=== PATIENT | female | born 1990 | race Caucasian/White ===

== ENCOUNTER 2017-04-24 04:04 | Inpatient (IN) | payer BC ==
[2017-04-24] MEDS ORDERED: Sodium Chloride 0.9% 10 ML ONE ×2 (04:56→23:05)
[2017-04-24] MEDS ORDERED: Ondansetron HCl/PF 4 MG/2 ML Vial IVP PRN ×2 (07:38→18:02)
[2017-04-24] MEDS ORDERED: Carboprost 250 MCG/ML AMP IM PRN (07:38)
[2017-04-24] MEDS ORDERED: Lidocaine 1% (PF) 30 ML VIAL SC PRN (07:38)
[2017-04-24] MEDS ORDERED: LR / Pitocin 40 units/1000 ml 1,000 ML IV PRN (07:38)
[2017-04-24] MEDS ORDERED: Ibuprofen 800 MG TAB PO PRN (07:38)
[2017-04-24] MEDS ORDERED: Acetaminophen/Codeine 30-300mg Tablet PO PRN ×2 (07:38)
[2017-04-24] MEDS ORDERED: Promethazine HCl 25 MG/ML VIAL IM PRN (07:38)
[2017-04-24] MEDS ORDERED: Diphenoxylate HCl/Atropine Tablet PO PRN (07:38)
[2017-04-24 07:45] LABS: Hemoglobin 12.1 g/dL (12.0-16.0); Mean Corpuscular HGB CONC 33.6 g/dL (32.0-36.0); Mean Corpuscular Hemoglobin 29.8 pg (27.0-31.0); Mean Corpuscular Volume 88.7 fl (81.0-99.0); Mean Platelet Volume 8.9 fL (7.4-10.4); Platelet Count 186 thou/uL (130-400); RBC Distribution Width 12.1 % (11.5-14.5); Red Blood Cell (RBC) Count 4.07 mill/uL (4.20-5.40); White Blood Cell (WBC) Count 11.6 thou/uL (4.8-10.8)
--- NOTE | 2017-04-24 07:47 | PDOC.LDHP ---
Labor and Delivery H&P Chief complaint: contractions HPI: CTX starting at 11pm on 04/23/17 and progressed until unbearable. Current gestational age (weeks): 41 Due date: 04/15/17 Dating criteria: last menstrual period (verified by first trimester US) Grav: 1 Para: 0 Current complications: none Abnormal US findings: No Past Medical History: abnml pap in 2016, with no colpo done Current medications: pre-deisy vitamins Previous surgical history: other (R. ankle sugery breast augmentation left benionectomy) Allergies/Adverse Reactions: Allergies Allergy/AdvReac Type Severity Reaction Status Date / Time Sulfa (Sulfonamide Allergy Verified 04/24/17 04:37 Antibiotics) Social history: none - Physical Exam Vital signs reviewed and normal: yes General: breathing through contractions Heart: RRR Lungs: nonlabored breathing Abdomen: gravid Extremeties: no edema FHT: category 1 [place] contractions every: q3 - Vaginal Exam cm dilated: 6 (on admission, exam byRN) Effacement: 90% Station: 0 - OB Labs Blood type: O RH: positive Antibody Screen: negative HIV: negative RPR: negative HEPSAg: negative 1 hour GCT: negative GBS: negative Urine drug screen: not done Rubella: immune Additional Labs: Sequentila screen negative - Assessment L&D Assessment: term patient in labor - Plan Plan: admit to L&D -: low intervention protocol
[2017-04-24] MEDS ORDERED: Lidocaine 1% (PF) 30 ML VIAL ONE ×2 (08:07→08:18)
[2017-04-24 08:17] LABS: Syphilis Antibody Nonreactive (Nonreactive); Syphilis Antibody Index 0.04 S/CO (<1.00 Non-Reactive)
[2017-04-24 08:18] LABS: HBSAg Index 0.21 S/CO (0-0.99); Hep B Surf Ag Non-Reactive S/CO (NonReactive)
[2017-04-24] MEDS ORDERED: CEFAZOLIN/Water 2 GM/20 ML SYRINGE ONE (10:48)
--- NOTE | 2017-04-24 10:48 | PDOC.EVN ---
Event Note - Event Note Event Note: L&D OBGYN chapter relations administrator note: Called into [facility] on request of Ms Corina Neumann for retained placenta. Manual placental extraction occurred by Corina neumann and removal revealed it to be intact visually. No excessive VB noted with procedure. Total EBL per light approx 500ml. After placental extraction, I performed a transabdominal targeted sono to assess for any retained POC. Endometrial stripe seen and confirmed by Corina Neumann as well as patient. No complications noted. Sono completed at 1040.
--- NOTE | 2017-04-24 10:57 | PDOC.OPDEL ---
OB Operative/Delivery Note Delivery Dr/Surgeon: Mamie Neumann CNM Pre-Delivery Diagnosis: active labor Procedure/Post Delivery Dx: spontaneous vaginal delivery Weeks gestation: 41 Anesthesia: none - Findings A Sex: female Weight: 8 lb 6 oz - 1 min: 8 - 5 min: 9 - Additional Findings/Plan Placenta delivered: manual removal (After 20 mins without placental delivery Pitocin was started. 1030, aproximately 30 mins after delivery of the infant, 2mg of IV stadol was administered and the OB hospitalist was notifed that I was going to proceed with manual removal. The retained Placenta was removed manually intact. A bedside US performed by Dr. hernandez at approximatly 1040 was used to confirm the entire placenta was removed. Bleeding was well controlled. fundus firm below umbilicus) Repaired Obstetrical Laceration: none Estimated blood loss: 500mL Compilations/Other Findings: See above - retained placenta with live removal Post delivery plan: routine recovery (2 gm Ancef IV push X 1 dose for infection prophylaxsis)
[2017-04-24] MEDS ORDERED: CEFAZOLIN/Water 2 GM/20 ML SYRINGE SLOW IVP SCH (11:00)
[2017-04-24] MEDS ORDERED: Milk Of Magnesia 30 ML UDCUP PO PRN (18:02)
[2017-04-24] MEDS ORDERED: Bisacodyl 10 MG SUPP PR PRN (18:02)
[2017-04-24] MEDS ORDERED: Lanolin Ointment 7 GM TUBE TOP PRN (18:02)
[2017-04-24] MEDS ORDERED: HYDROcodone/Acetaminophen 5/325 mg Tablet PO PRN ×2 (18:02)
[2017-04-24] MEDS ORDERED: Misoprostol 200 MCG TAB VAG SCH (18:15)
[2017-04-24] MEDS ORDERED: Ferrous Sulfate 325 MG TAB PO SCH (18:15)
[2017-04-24] MEDS ORDERED: Ibuprofen 800 MG TAB PO SCH ×2 (18:15→23:00)
[2017-04-24] MEDS ORDERED: LR / Pitocin 40 units/1000 ml 1,000 ML IV SCH (18:15)
[2017-04-24] MEDS ORDERED: Adacel (T-DAP) 0.5 ML VIAL IM ONE (18:30)
[2017-04-24] MEDS ORDERED: Varicella virus, LIVE 0.5 ML VIAL SC ONE (18:30)
[2017-04-24] MEDS: Ibuprofen 800 MG TAB PO SCH (20:23)
[2017-04-24] MEDS: Docusate Calcium (SURFAK) 240 MG CAP PO SCH (20:23)
[2017-04-25] MEDS: Ibuprofen 800 MG TAB PO SCH ×3 (05:36→21:50)
[2017-04-25 05:47] LABS: Hemoglobin 10.4 g/dL (12.0-16.0); Mean Corpuscular HGB CONC 34.2 g/dL (32.0-36.0); Mean Corpuscular Hemoglobin 30.5 pg (27.0-31.0); Mean Corpuscular Volume 89.2 fl (81.0-99.0); Mean Platelet Volume 8.6 fL (7.4-10.4); Platelet Count 179 thou/uL (130-400); RBC Distribution Width 12.2 % (11.5-14.5); Red Blood Cell (RBC) Count 3.41 mill/uL (4.20-5.40); White Blood Cell (WBC) Count 11.3 thou/uL (4.8-10.8)
[2017-04-25] MEDS: Ferrous Sulfate 325 MG TAB PO SCH ×2 (08:19→16:10)
[2017-04-25] MEDS: Docusate Calcium (SURFAK) 240 MG CAP PO SCH ×2 (08:22→21:51)
[2017-04-25] MEDS ORDERED: Prenatal Vitamin 1 TAB PO SCH (09:00)
--- NOTE | 2017-04-25 18:51 | PDOC.PP ---
Post Progress Note Post Day #: 1 PO intake tolerated: yes Flatus: yes Ambulation: yes Vital Signs (12 hours) Temp Pulse Resp BP 04/25/17 17:28 98.0 F 04/25/17 12:00 97.8 F 59 L 20 04/25/17 10:02 97.8 F 59 L 20 04/25/17 07:41 97.8 F 59 L 20 109/55 L - Physical Examination General: NAD Cardiovascular: RRR Respiratory: clear to auscultation bilaterally Abdominal: + bowel sounds, lochia (minimal) Fundus firm & at: u-1 Extremities: negative homans (B) Skin: no rash Perineum: edema. Psychiatric: A&Ox3 Result Diagrams: 04/25/17 05:21 Additional Labs: Post Labs Blood Type O POSITIVE 04/24/17 05:25 Hep Bs Antigen Non-Reactive S/CO (NonReactive) 04/24/17 05:25 - Assessment/Plan A; G1 now P1 s/p with NML ppd #1 P: Discharge home tomorrow
[2017-04-25 21:19] VITALS: BP 113/54
[2017-04-26] MEDS: Ibuprofen 800 MG TAB PO SCH (06:17)
[2017-04-26 09:25] VITALS: TEMP 97.8
== END 2017-04-26 11:44 | disposition home or self-care (01) | DRG 767 ==
LOC: L&D/OP 04:04 → L&D-LIB 05:07 → 3SW 17:49
PROVIDERS: ADMIT Obstetrics & Gynecology; ATTEND Obstetrics & Gynecology
PROC: 10E0XZZ Delivery of Products of Conception, External Approach (ICD-10-PCS; principal; 2017-04-24)
PROC: 10D17Z9 Manual Extraction of Products of Conception, Retained, Via Natural or Artificial Opening (ICD-10-PCS; 2017-04-24)
DX: O73.1 Retained portions of placenta and membranes, without hemorrhage (principal); Z37.0 Single live birth; Z3A.41 41 weeks gestation of pregnancy
CPT/HCPCS: 36415; 76815; 85027; 86780; 87340; 99285; A4216; J0595; J2001

== ENCOUNTER 2018-08-31 13:27 | Inpatient (IN) | payer BC ==
[2018-08-31 14:00] VITALS: BMI 26.6
[2018-08-31] MEDS ORDERED: Misoprostol 200 MCG TAB PR PRN (14:14)
[2018-08-31] MEDS ORDERED: Promethazine HCl 25 MG/ML VIAL IM PRN (14:14)
[2018-08-31] MEDS ORDERED: Acetaminophen/Codeine 30-300mg Tablet PO PRN ×2 (14:14)
[2018-08-31] MEDS ORDERED: Ibuprofen 800 MG TAB PO PRN (14:14)
[2018-08-31] MEDS ORDERED: Lidocaine 1% (PF) 30 ML VIAL SC PRN (14:14)
[2018-08-31] MEDS ORDERED: Ondansetron PF 4 MG/2 ML Vial IVP PRN (14:14)
[2018-08-31] MEDS ORDERED: Methylergonovine 0.2 MG/ML VIAL IM PRN ×2 (14:14→20:38)
[2018-08-31] MEDS ORDERED: Zolpidem Tartrate 5 MG TAB PO PRN (14:14)
[2018-08-31] MEDS ORDERED: NS / Oxytocin 40 units/1000ml 1,000 ML IV PRN (14:14)
[2018-08-31] MEDS ORDERED: Lactated Ringer's 1,000 ML IV SCH ×2 (14:15)
[2018-08-31 14:42] LABS: Hemoglobin 12.6 g/dL (12.0-16.0); Mean Corpuscular Hemoglobin 30.2 pg (27.0-31.0); Mean Corpuscular Volume 86.3 fL (78.0-98.0); Mean Platelet Volume 10.2 fL (7.4-10.4); Platelet Count 163 thou/uL (130-400); RBC Distribution Width 12.3 % (11.5-14.5); Red Blood Cell (RBC) Count 4.17 mill/uL (4.20-5.40); White Blood Cell (WBC) Count 10.6 thou/uL (4.8-10.8)
[2018-08-31] MEDS ORDERED: NS / Oxytocin 40 units/1000ml 1,000 ML ONE (14:45)
[2018-08-31] MEDS ORDERED: Lidocaine 1% (PF) 30 ML VIAL ONE (14:46)
[2018-08-31 15:23] LABS: HBSAg Index 0.38 S/CO (0-0.99); Hep B Surf Ag Non-Reactive S/CO (NonReactive); Syphilis Antibody Nonreactive (Nonreactive); Syphilis Antibody Index 0.03 S/CO (<1.00 Non-Reactive)
--- NOTE | 2018-08-31 17:50 | PDOC.LDHP ---
Labor and Delivery H&P Chief complaint: contractions HPI: Patient started desi around 12 with consistent contractions every 4 mins. She denies LOF, VB. the baby is moving well. Current gestational age (weeks): 40 (6 day. ) Due date: 08/25/18 Dating criteria: first trimester ultrasound Grav: 2 Para: 1 OB History Details: - post dates , no lacerations. 8.8 female G2 current S<D on first trimester US. close interval . Current complications: none Abnormal US findings: No Current medications: pre-deisy vitamins Previous surgical history: other (ankle x 2 reconstruction Breast augmentation) Allergies/Adverse Reactions: Allergies Allergy/AdvReac Type Severity Reaction Status Date / Time Sulfa (Sulfonamide Allergy Intermediate Rash Verified 08/31/18 14:00 Antibiotics) Social history: none - Physical Exam Vital signs reviewed and normal: yes General: breathing through contractions Heart: RRR Lungs: nonlabored breathing Abdomen: gravid FHT: category 1 [place] contractions every: q3 - Vaginal Exam cm dilated: 7 Effacement: 75% Station: -1 - OB Labs Blood type: O RH: positive Antibody Screen: negative HIV: negative RPR: negative HEPSAg: negative 1 hour GCT: negative GBS: negative Urine drug screen: negative Rubella: immune - Assessment L&D Assessment: term patient in labor - Plan Plan: admit to L&D -: Low intervention protocols anticipate Anticipate PPH due to RF macrosomia.
--- NOTE | 2018-08-31 17:55 | PDOC.OPDEL ---
OB Operative/Delivery Note Delivery Dr/Surgeon: Mamie Neumann CNM Pre-Delivery Diagnosis: active labor Procedure/Post Delivery Dx: spontaneous vaginal delivery Weeks gestation: 40 (6 days) Anesthesia: none - Findings A Sex: male - 1 min: 8 - 5 min: 9 - Additional Findings/Plan Placenta delivered: spontaneous Repaired Obstetrical Laceration: none Estimated blood loss: 250ml EBL Compilations/Other Findings: No lacderations. Loose nuchal cord - not reduced. Post delivery plan: routine recovery
[2018-08-31] MEDS ORDERED: HYDROcodone/Acetaminophen 5/325 mg Tablet PO PRN ×2 (20:38)
[2018-08-31] MEDS ORDERED: Benzocaine-Menthol 82.5 ML CAN TOP PRN (20:38)
[2018-08-31] MEDS ORDERED: NS / Oxytocin 40 units/1000ml 1,000 ML IV SCH (20:38)
[2018-08-31] MEDS ORDERED: Misoprostol 200 MCG TAB VAG PRN (20:38)
[2018-08-31] MEDS ORDERED: Bisacodyl 10 MG SUPP PR PRN (20:38)
[2018-08-31] MEDS ORDERED: Milk Of Magnesia 30 ML UDCUP PO PRN (20:38)
[2018-08-31] MEDS: Ibuprofen 800 MG TAB PO SCH (21:22)
[2018-08-31] MEDS: Docusate Calcium (SURFAK) 240 MG CAP PO SCH (21:34)
[2018-08-31] MEDS ORDERED: Sodium Chloride 0.9% 10 ML ONE (22:16)
[2018-09-01] MEDS: Ibuprofen 800 MG TAB PO SCH ×3 (04:32→20:16)
[2018-09-01] MEDS ORDERED: Adacel (T-DAP) 0.5 ML SYRINGE IM ONE (09:00)
[2018-09-01] MEDS: Docusate Calcium (SURFAK) 240 MG CAP PO SCH ×2 (09:10→20:16)
[2018-09-01] MEDS: Ferrous Sulfate 325 MG TAB PO SCH ×2 (09:38→16:35)
[2018-09-02] MEDS: Ibuprofen 800 MG TAB PO SCH (04:03)
[2018-09-02 07:55] VITALS: BP 117/66; TEMP 97.8
--- NOTE | 2018-09-02 08:17 | PDOC.PP ---
Post Progress Note Post Day #: 1 PO intake tolerated: yes Flatus: yes Ambulation: yes Vital Signs (12 hours) Temp Pulse Resp BP BP Pulse Ox 09/02/18 07:00 97.8 F 65 18 117/66 100 09/02/18 04:05 97.7 F 52 L 18 124/61 09/01/18 23:48 98.2 F 76 16 117/56 L Weight Weight 170 lb - Physical Examination General: NAD Respiratory: non-labored breathing Abdominal: lochia (minimal) Extremities: negative homans (B) Neurological: no gross focal deficits Psychiatric: A&Ox3, normal affect Result Diagrams: 08/31/18 14:34 Additional Labs: Post Labs Blood Type O POSITIVE 08/31/18 14:34 Hep Bs Antigen Non-Reactive S/CO (NonReactive) 08/31/18 14:34 (1) (spontaneous vaginal delivery) Code(s): O80 - ENCOUNTER FOR FULL-TERM UNCOMPLICATED DELIVERY Status: Acute (2) 40 weeks gestation of Code(s): Z3A.40 - 40 WEEKS GESTATION OF Status: Acute - Assessment/Plan G2 now P2 S/p at 40w 6 day. no laceration. NML PPD 1 exam Plan. routine care. discharge home tomorrow.
[2018-09-02] MEDS: Ferrous Sulfate 325 MG TAB PO SCH (09:45)
[2018-09-02] MEDS: Docusate Calcium (SURFAK) 240 MG CAP PO SCH (10:16)
== END 2018-09-02 11:14 | disposition home or self-care (01) | DRG 807 ==
LOC: L&D/OP 13:27 → L&D-LIB 14:17 → 3SE 20:34
PROVIDERS: ADMIT Obstetrics & Gynecology; ATTEND Obstetrics & Gynecology
PROC: 10E0XZZ Delivery of Products of Conception, External Approach (ICD-10-PCS; principal; 2018-08-31)
DX: O36.63X0 Maternal care for excessive fetal growth, third trimester, not applicable or unspecified (principal); Z37.0 Single live birth; O73.0 Retained placenta without hemorrhage; O69.81X0 Labor and delivery complicated by cord around neck, without compression, not applicable or unspecified; Z3A.40 40 weeks gestation of pregnancy; Z88.2 Allergy status to sulfonamides
CPT/HCPCS: 36415; 85027; 86780; 86850; 86900; 86901; 87340; 99285; J2001